=== PATIENT | female | born 1990 | race Caucasian/White ===

== ENCOUNTER 2018-12-15 23:06 | Emergency (ER) | payer OTHER, MEDICAID, SELFPAY ==
[2018-12-15 23:35] VITALS: BP 126/78; PULSE 78; RESP 18; TEMP 36.7; O2SAT 99; BMI 31.0
--- NOTE | 2018-12-16 02:17 | ED.FEMALEGU ---
HPI - Female Genitourinary General Chief complaint: Urogenital-Female Stated complaint: bowling floor manager problem, lower abdominal pain Time Seen by Provider: 12/16/18 02:06 Source: patient Mode of arrival: ambulatory Limitations: no limitations History of Present Illness HPI Narrative: Patient is a 28-year-old female who presents abnormal feeling in her vagina. For the last 3 weeks she feels like something is coming out especially when she squats down. Today she was bending down playing with her daughter when she felt like it was coming out even more. She denies any difficulty urinating she has had some abnormal bowel movements as some with blood in quite hard. She has no abdominal pain no fever. She also states that her period It is about 10 days late. Review of Systems Review of Systems GENERAL: Denies chills,fever HEENT: Denies throat pain RESPIRATORY: Denies dyspnea, cough, wheezing CARDIOVASCULAR: Denies chest pain, palpitations GASTROINTESTINAL: Denies nausea, vomiting MUSCULOSKELETAL: Denies extremity pain, injury SKIN: No rash, no laceration, no pruritus NEUROLOGIC: Denies weakness, dizziness, headache, numbness 8 point review of systems is negative except for those stated above and HPI Genitourinary Reports as per [facility] Medical History Patient denies significant medical history (Acute) Surgical History Hx of tubal ligation (Acute) Social History alcohol intake: never substance use type: does not use Social History alcohol intake: never substance use type: does not use Comment: Exam Initial Vital Signs Initial Vital Signs: Vital Signs Temperature 98.1 F 12/15/18 23:35 Pulse Rate 78 12/15/18 23:35 Respiratory Rate 18 12/15/18 23:35 Blood Pressure 126/78 12/15/18 23:35 Pulse Oximetry 99 12/15/18 23:35 GENERAL: Well-appearing, well-nourished and in no acute distress. CARDIOVASCULAR: peripheral pulses in tact, cap refill <2 sec RESPIRATORY: No respiratory distress, speaks in full sentences without difficulty ABDOMEN: Soft, nontender, no guarding or rebound PELVIC: External genitalia is normal, patient does have a vaginal bulge with bearing down, no vaginal bleeding, no vaginal discharge, no odor, cervical os is closed, no adnexal tenderness EXTREMITIES: Normal range of motion, no clubbing or edema. Neurovascularly intact NEUROLOGICAL: Cranial nerves II through XII grossly intact. Normal gait and speech. SKIN: Warm, dry, no petechiae, no rashes or lesions. Course Vital Signs - 8 hr 12/15/18 23:35 12/16/18 02:42 Temperature 98.1 F Pulse Rate 78 66 Respiratory Rate 18 16 Blood Pressure 126/78 Blood Pressure [Right Arm] 114/74 Pulse Oximetry 99 99 MDM - Female Genitourinary Lab Data Attestation: I reviewed the patient's lab results. Urine Dip Bedside Urine Glucose Negative Bedside Urine Bilirubin - Negative Bedside Urine Ketone - Negative Urine Specific [place] 1.030 Bedside Urine Occult Blood - Negative Bedside Urine pH 5.5 Bedside Urine Protein +/- 15 Bedside Urine Urobilinogen +/- 1mg Bedside Urine Nitrite - Negative Bedside Urine Leukocytes - Negative Esterase MDM Narrative Medical decision making narrative: Unfortunately nursing did not do POC . It is not having any abnormal bleeding she has no abdominal pain, and does have a history of tubal ligation, I think is unlikely at this time. Patient does have an obvious bulge coming from her vagina consistent with uterine prolapse. I recommended she follow up with bowling floor manager. Discharge Plan Departure Patient Disposition: Home Clinical Impression: Incomplete uterine prolapse Discharge Date/Time: 12/16/18 03:37 Interventions: ED Discharge Assessment Last Done: 12/16/18 03:36 Instructions: DI for Uterine Prolapse Activity Restrictions/Additional Instructions: *You have been diagnosed with uterine prolapse *What to do: This will likely require surgery please speak with her bowling floor manager not emergent at this time *Continue to take medications as directed *Follow up with your primary care provider in 2-3 days *Return to ER if you should have or any new, worsening or concerning symptoms Referrals: Elodia Sharif MD [Physician] -
[2018-12-16 02:42] VITALS: BP 114/74; PULSE 66; RESP 16; O2SAT 99
--- NOTE | 2018-12-16 06:25 | ED_ITS ---
HPI - Female Genitourinary General Chief complaint: Urogenital-Female Stated complaint: ager tender problem, lower abdominal pain Time Seen by Provider: 12/16/18 02:06 Source: patient Mode of arrival: ambulatory Limitations: no limitations History of Present Illness HPI Narrative: Patient is a 28-year-old female who presents abnormal feeling in her vagina. For the last 3 weeks she feels like something is coming out espec ially when she squats down. Today she was bending down playing with her daughter when she felt like it was coming out even more. She denies any difficulty urinating she has had some abnormal bowel movements as some with blood in quite hard. She has no abdominal pain no fever. She also states that her period It is about 10 days late. Review of Systems Review of Systems GENERAL: Denies chills,fever HEENT: Denies throat pain RESPIRATORY: Denies dyspnea, cough, wheezing CARDIOVASCULAR: Denies chest pain, palpitations GASTROINTESTINAL: Denies nausea, vomiting MUSCULOSKELETAL: Denies extremity pain, injury SKIN: No rash, no laceration, no pruritus NEUROLOGIC: Denies weakness, dizziness, headache, numbness 8 point review of systems is negative except for those stated above and HPI Genitourinary Reports as per [facility] Medical History Patient denies significant medical history (Acute) Surgical History Hx of tubal ligation (Acute) Social History alcohol intake: never substance use type: does not use Social History alcohol intake: never substance use type: does not use Comment: Exam Initial Vital Signs Initial Vital Signs: Vital Signs Temperature 98.1 F 12/15/18 23:35 Pulse Rate 78 12/15/18 23:35 Respiratory Rate 18 12/15/18 23:35 Blood Pressure 126/78 12/15/18 23:35 Pulse Oximetry 99 12/15/18 23:35 GENERAL: Well-appearing, well-nourished and in no acute distress. CARDIOVASCULAR: peripheral pulses in tact, cap refill <2 sec RESPIRATORY: No respiratory distress, speaks in full sentences without difficulty ABDOMEN: Soft, nontender, no guarding or rebound PELVIC: External genitalia is normal, patient does have a vaginal bulge with bearing down, no vaginal bleeding, no vaginal discharge, no odor, cervical os is closed, no adnexal tenderness EXTREMITIES: Normal range of motion, no clubbing or edema. Neurovascularly intact NEUROLOGICAL: Cranial nerves II through XII grossly intact. Normal gait and speech. SKIN: Warm, dry, no petechiae, no rashes or lesions. Course Vital Signs - 8 hr 12/15/18 23:35 12/16/18 02:42 Temperature 98.1 F Pulse Rate 78 66 Respiratory Rate 18 16 Blood Pressure 126/78 Blood Pressure [Right Arm] 114/74 Pulse Oximetry 99 99 MDM - Female Genitourinary Lab Data Attestation: I reviewed the patient's lab results. Urine Dip Bedside Urine Glucose Negative Bedside Urine Bilirubin - Negative Bedside Urine Ketone - Negative Urine Specific [place] 1.030 Bedside Urine Occult Blood - Negative Bedside Urine pH 5.5 Bedside Urine Protein +/- 15 Bedside Urine Urobilinogen +/- 1mg Bedside Urine Nitrite - Negative Bedside Urine Leukocytes - Negative Esterase MDM Narrative Medical decision making narrative: Unfortunately nursing did not do POC . It is not having any abnormal bleeding she has no abdominal pain, and does have a history of tubal ligation, I think is unlikely at this time. Patient does have an obvious bulge coming from her vagina consistent with uterine prolapse. I recommended she follow up with ager tender. Discharge Plan Departure Patient Disposition: Home Clinical Impression: Incomplete uterine prolapse Discharge Date/Time: 12/16/18 03:37 Interventions: ED Discharge Assessment Last Done: 12/16/18 03:36 Instructions: DI for Uterine Prolapse Activity Restrictions/Additional Instructions: *You have been diagnosed with uterine prolapse *What to do: This will likely require surgery please speak with her ager tender not emergent at this time *Continue to take medications as directed *Follow up with your primary care provider in 2-3 days *Return to ER if you should have or any new, worsening or concerning symptoms Referrals: Elodia Sharif MD [Physician] -
== END 2018-12-16 03:37 | disposition home or self-care (01) ==
PROVIDERS: Emergency Provider Emergency Medicine
DX: N81.2 Incomplete uterovaginal prolapse (principal)
CPT/HCPCS: 81003; 99282

== ENCOUNTER 2019-03-06 09:30 | Outpatient (RCR) | payer OTHER, MEDICAID, SELFPAY ==
--- NOTE | 2019-02-12 10:21 | PT.OIE ---
Current Diagnoses Stress incontinence (female) (male) (02/12/19) Cystocele, midline (02/12/19) Urgency of urination (02/12/19) Past Medical History (Last Reviewed 02/12/19 @ 10:19 by Sruthi Moore, PT) Patient denies significant medical history (Acute) Past Surgical History (Last Reviewed 02/12/19 @ 10:19 by Sruthi Moore, PT) Hx of tubal ligation (Acute) Provider Visit Care Team Role Provider Type H Everardo Matute MD Primary Care Provider Physician Specialty: Medical Address: [address] [place] [address], [phone] Email: Elodia Sharif MD Attending Provider Physician Specialty: TEACHER'S ASSISTANT Address: [address] [place] [address], [address] Email: [email or web address] Physical Therapy Initial Evaluation PT-OP-A Visit Information Start: 02/12/19 07:20 Freq: Status: Active Protocol: Document 02/12/19 08:15 AMB (Rec: 02/12/19 09:57 AMB [email or web address]) Out-Patient Physical Therapy Visit Information Visit Information Visit Type Initial Evaluation Visit Start Time 08:15 Visit Stop Time 09:00 Total Visit Minutes 45 Visit Number 1 Evaluation Information Evaluation Date 02/12/19 PT-OP-B Current Condition Start: 02/12/19 07:20 Freq: Status: Active Protocol: Document 02/12/19 08:15 AMB (Rec: 02/12/19 09:57 AMB [email or web address]) Current Condition History of Current Condition Onset Date 2 years ago Current Complaints prolapse, stress incontinence, urgency History of Current Condition Deysi has had 3 children, the most recent was delivered 2 years ago, all vaginal deliveries, had a tear with the first, but more symptomatic with her third when she states she pushed once during delivery. She does state that she had stress incontinence symptoms as early as middle school, noting leaking with jumping on the trampoline caused leaks. Since the of her first child, she has had more urgency, noting that she cannot wait to use the bathroom, and if she drinks a lot of water she gets pain in her abdomen if she tries to hold the urine. Recently she has noticed a vaginal bulge and was diagnosed with cystocele. She does note that intercourse has been more difficult, feels like there isn't a lot of room in there. History of chronic constipation. Has been working out a lot with both [employer] and weightlifting, has lost 80 pounds since the of her second child. Current Functional Impairments (Reported) Functional Limitations- Recreation/ Difficulty working out due to Hobbies needing to use the bathroom 3x during a 1.5 hour period due to drinking a lot of water and having to void 3x to avoid bladder pain. Avoids long car trips. PT-OP-C Subjective Start: 02/12/19 07:20 Freq: Status: Active Protocol: Document 02/12/19 08:15 AMB (Rec: 02/12/19 09:57 AMB [email or web address]) Patient Questionnaires Pelvic Pain and Urgency/Frequency Patient Symptom Scale Pelvic Pain Score 4 PT-OP-I Pelvic Floor Start: 02/12/19 07:20 Freq: Status: Active Protocol: Document 02/12/19 08:15 AMB (Rec: 02/12/19 10:06 AMB [email or web address]) Pelvic Floor Assessment Urine Pelvic Floor Surgery tubal ligation Urinary Symptoms Urge Sensation Prolapse Pain Leakage Size Small Leakage Cause Cough Exercise Sneeze Urge Leaks Per Day 3 Nocturia 1 Bowel Bowel Symptoms Constipation Pelvic Clock Pelvic Clock 12-3 Tenderness Pelvic Clock 9-12 Tenderness Prolapse Cystocele Grade 2 Perineal Descent Resting Absent Bearing Present Contraction Ability Voluntary Contraction Weak Voluntary Relaxation Weak Manual Muscle Testing Left 2 Manual Muscle Testing Right 2 Manual Muscle Testing Anterior 1 Manual Muscle Testing Posterior 3 Muscle Endurance (Seconds) 4 Number of Quick Contractions In 10 4 Seconds Comments Pelvic Floor Comments Deysi tends to use her abdominals and gluteals when using her pelvic floor. Better strength posteriorly then anteriorly. 1 finger width diastasis recti just inferior to umbilicus. PT-OP-Q Treatments Start: 02/12/19 07:20 Freq: Status: Active Protocol: Document 02/12/19 08:15 AMB (Rec: 02/12/19 10:06 AMB [email or web address]) Manual Therapy Treatment Soft Tissue Mobilization 1 Body Location abdomen Comments ILU self massage Neuro Re-Education Treatment Other Activities 1 Details quick flicks and long holds Comments hooklying PT-OP-T Assessment and Plan Start: 02/12/19 07:20 Freq: Status: Active Protocol: Document 02/12/19 08:15 AMB (Rec: 02/12/19 10:18 AMB [email or web address]) Physical Therapy Assessment Rehab Potential Rehabilitation Potential Good Evaluation Complexity Number of Personal Factors/Comorbidities 1-2 Number of Body Systems Impaired 3 Clinical Presentation at Evaluation Evolving Impairments Impairments Functional Activities Pain Strength Goals Two Impairment urgency Short Term Goal (STG) Deysi will be able to workout for 1.5 hours with voiding her bladder only one time without pain. STG Duration 5 weeks Stoper Goal (LTG) Deysi will be able to go home and not have urinary urgency. LTG Duration 10 weeks One Impairment prolapse Short Term Goal (STG) Deysi will improve her pelvic floor strength to 3/5. STG Duration 5 weeks Stoper Goal (LTG) Deysi will be able to contract her pelvic floor muscles while performing a squat. LTG Duration 10 weeks Assessment Summary Assessment Deysi attends physical therapy with multiple pelvic floor impairments. Her biggest concern is her prolapse, but she also has urgency and stress incontinence. She will benefit from PT to improve her pelvic floor strength in a safe way so that she can continue to workout without worsening her prolapse. We will also be addressing her leaking. Her chronic constipation also will worsen her prolapse in the long run, so we will work on education to reduce this as much as possible. Physical Therapy Plan Frequency and Duration Frequency of Treatment 1x/Week Duration of Treatment 10 weeks Plan of Care Start Date 02/12/19 Plan of Care End Date 04/23/19 Therapeutic Interventions Therapeutic Interventions Home Exercise Program Manual Therapy Neuromuscular Re-education Self-Care/Home Management Therapeutic Activities Therapeutic Exercises Modalities Biofeedback Electric Stimulation Next Visit Focus/Plan Next Note Type Treatment Note Next Visit Plan Begin with sEMG, urge reduction.
--- NOTE | 2019-02-12 10:22 | PT.OPPOC ---
Current Diagnoses Stress incontinence (female) (male) (02/12/19) Cystocele, midline (02/12/19) Urgency of urination (02/12/19) Provider Visit Care Team Role Provider Type H Everardo Matute MD Primary Care Provider Physician Specialty: Medical Address: [address] [place] [address], [place], [id number] Email: Elodia Sharif MD Attending Provider Physician Specialty: TOBACCO CLASSER Address: [address] [place] [address], [id number] Email: [email or web address] Plan Of Care PT-OP-T Assessment and Plan Start: 02/12/19 07:20 Freq: Status: Active Protocol: Document 02/12/19 08:15 AMB (Rec: 02/12/19 10:18 AMB [email or web address]) Physical Therapy Assessment Rehab Potential Rehabilitation Potential Good Evaluation Complexity Number of Personal Factors/Comorbidities 1-2 Number of Body Systems Impaired 3 Clinical Presentation at Evaluation Evolving Impairments Impairments Functional Activities Pain Strength Goals Two Impairment urgency Short Term Goal (STG) Deysi will be able to workout for 1.5 hours with voiding her bladder only one time without pain. STG Duration 5 weeks Group Home Goal (LTG) Deysi will be able to go home and not have urinary urgency. LTG Duration 10 weeks One Impairment prolapse Short Term Goal (STG) Deysi will improve her pelvic floor strength to 3/5. STG Duration 5 weeks Plate Straightener Goal (LTG) Deysi will be able to contract her pelvic floor muscles while performing a squat. LTG Duration 10 weeks Assessment Summary Assessment Deysi attends physical therapy with multiple pelvic floor impairments. Her biggest concern is her prolapse, but she also has urgency and stress incontinence. She will benefit from PT to improve her pelvic floor strength in a safe way so that she can continue to workout without worsening her prolapse. We will also be addressing her leaking. Her chronic constipation also will worsen her prolapse in the long run, so we will work on education to reduce this as much as possible. Physical Therapy Plan Frequency and Duration Frequency of Treatment 1x/Week Duration of Treatment 10 weeks Plan of Care Start Date 02/12/19 Plan of Care End Date 04/23/19 Therapeutic Interventions Therapeutic Interventions Home Exercise Program Manual Therapy Neuromuscular Re-education Self-Care/Home Management Therapeutic Activities Therapeutic Exercises Modalities Biofeedback Electric Stimulation Next Visit Focus/Plan Next Note Type Treatment Note Next Visit Plan Begin with sEMG, urge reduction. Plan of Care Dates Plan of Care Start Date 02/12/19 Plan of Care End Date 04/23/19 Please Sign and Return: I have reviewed this Plan of Care and certify that the skilled therapy services above are required to meet the patient?s needs. Physician Signature Date Printed Name and Credentials Clinical Instructor Signature Printed Name and Credentials
--- NOTE | 2019-02-28 08:47 | PT.OTN ---
Current Diagnoses Cystocele, midline (02/27/19) Physical Therapy Treatment Note PT-OP-A Visit Information Start: 02/12/19 07:20 Freq: Status: Active Protocol: Document 02/27/19 13:45 AMB (Rec: 02/28/19 08:46 AMB [email or web address]) Out-Patient Physical Therapy Visit Information Visit Information Visit Type Treatment Note Visit Start Time 13:45 Visit Stop Time 14:30 Total Visit Minutes 45 Visit Number 2 PT-OP-B Current Condition Start: 02/12/19 07:20 Freq: Status: Active Protocol: Document 02/12/19 08:15 AMB (Rec: 02/12/19 09:57 AMB [email or web address]) Current Condition History of Current Condition Onset Date 2 years ago Current Complaints prolapse, stress incontinence, urgency History of Current Condition Deysi has had 3 children, the most recent was delivered 2 years ago, all vaginal deliveries, had a tear with the first, but more symptomatic with her third when she states she pushed once during delivery. She does state that she had stress incontinence symptoms as early as middle school, noting leaking with jumping on the trampoline caused leaks. Since the of her first child, she has had more urgency, noting that she cannot wait to use the bathroom, and if she drinks a lot of water she gets pain in her abdomen if she tries to hold the urine. Recently she has noticed a vaginal bulge and was diagnosed with cystocele. She does note that intercourse has been more difficult, feels like there isn't a lot of room in there. History of chronic constipation. Has been working out a lot with both cardio and weightlifting, has lost 80 pounds since the of her second child. Current Functional Impairments (Reported) Functional Limitations- Recreation/ Difficulty working out due to Hobbies needing to use the bathroom 3x during a 1.5 hour period due to drinking a lot of water and having to void 3x to avoid bladder pain. Avoids long car trips. PT-OP-C Subjective Start: 02/12/19 07:20 Freq: Status: Active Protocol: Document 02/27/19 13:45 AMB (Rec: 02/28/19 08:46 AMB [email or web address]) OP-PT Subjective Patient Comments Patient Comments Deysi reports her cystocele is not as bad as when she saw Dr. Foist originally. She is concerned about being able to continue to lift weights. PT-OP-I Pelvic Floor Start: 02/12/19 07:20 Freq: Status: Active Protocol: Document 02/12/19 08:15 AMB (Rec: 02/12/19 10:06 AMB [email or web address]) Pelvic Floor Assessment Urine Pelvic Floor Surgery tubal ligation Urinary Symptoms Urge Sensation Prolapse Pain Leakage Size Small Leakage Cause Cough Exercise Sneeze Urge Leaks Per Day 3 Nocturia 1 Bowel Bowel Symptoms Constipation Pelvic Clock Pelvic Clock 12-3 Tenderness Pelvic Clock 9-12 Tenderness Prolapse Cystocele Grade 2 Perineal Descent Resting Absent Bearing Present Contraction Ability Voluntary Contraction Weak Voluntary Relaxation Weak Manual Muscle Testing Left 2 Manual Muscle Testing Right 2 Manual Muscle Testing Anterior 1 Manual Muscle Testing Posterior 3 Muscle Endurance (Seconds) 4 Number of Quick Contractions In 10 4 Seconds Comments Pelvic Floor Comments Deysi tends to use her abdominals and gluteals when using her pelvic floor. Better strength posteriorly then anteriorly. 1 finger width diastasis recti just inferior to umbilicus. PT-OP-Q Treatments Start: 02/12/19 07:20 Freq: Status: Active Protocol: Document 02/27/19 13:45 AMB (Rec: 02/28/19 08:46 AMB [email or web address]) Therapeutic Exercises Supine Exercises 3 Supine Exercise Name roll in/ roll out Resistance #3 band Reps/Minutes 1x10 ea Comments TrA 2 Supine Exercise Name hooklying march with PF contract Reps/Minutes 2x10 Comments TrA 1 Supine Exercise Name pelvic tilt with PF contract Reps/Minutes 2x10 Standing Exercises 2 Standing Exercise Name mini squat Reps/Minutes 2x10 1 Standing Exercise Name stand with TrA/ pelvic floor Reps/Minutes 10x5 PT-OP-T Assessment and Plan Start: 02/12/19 07:20 Freq: Status: Active Protocol: Document 02/27/19 13:45 AMB (Rec: 02/28/19 08:46 AMB [email or web address]) Physical Therapy Assessment Assessment Summary Assessment Deysi with good understanding of pelvic floor and TrA combined stabilization at the end of the visit. Will need to recheck how she is doing her HEP next visit to assess retention. Physical Therapy Plan Next Visit Focus/Plan Next Note Type Treatment Note Next Visit Plan Pt needs to void more frequently with her description of urge/ working all day without voiding. May consider bladder diary.
--- NOTE | 2019-03-06 16:52 | PT.OTN ---
Current Diagnoses Cystocele, midline (03/06/19) Physical Therapy Treatment Note PT-OP-A Visit Information Start: 02/12/19 07:20 Freq: Status: Active Protocol: Document 03/06/19 09:30 AMB (Rec: 03/06/19 10:13 AMB [id number]) Out-Patient Physical Therapy Visit Information Visit Information Visit Type Treatment Note Visit Start Time 09:30 Visit Stop Time 10:15 Total Visit Minutes 45 Visit Number 3 PT-OP-B Current Condition Start: 02/12/19 07:20 Freq: Status: Active Protocol: Document 02/12/19 08:15 AMB (Rec: 02/12/19 09:57 AMB [email or web address]) Current Condition History of Current Condition Onset Date 2 years ago Current Complaints prolapse, stress incontinence, urgency History of Current Condition Deysi has had 3 children, the most recent was delivered 2 years ago, all vaginal deliveries, had a tear with the first, but more symptomatic with her third when she states she pushed once during delivery. She does state that she had stress incontinence symptoms as early as middle school, noting leaking with jumping on the trampoline caused leaks. Since the of her first child, she has had more urgency, noting that she cannot wait to use the bathroom, and if she drinks a lot of water she gets pain in her abdomen if she tries to hold the urine. Recently she has noticed a vaginal bulge and was diagnosed with cystocele. She does note that intercourse has been more difficult, feels like there isn't a lot of room in there. History of chronic constipation. Has been working out a lot with both cardio and weightlifting, has lost 80 pounds since the of her second child. Current Functional Impairments (Reported) Functional Limitations- Recreation/ Difficulty working out due to Hobbies needing to use the bathroom 3x during a 1.5 hour period due to drinking a lot of water and having to void 3x to avoid bladder pain. Avoids long car trips. PT-OP-C Subjective Start: 02/12/19 07:20 Freq: Status: Active Protocol: Document 03/06/19 09:30 AMB (Rec: 03/06/19 10:13 AMB [id number]) OP-PT Subjective Patient Comments Patient Comments Deysi is doing well but has not been exercising as much. PT-OP-I Pelvic Floor Start: 02/12/19 07:20 Freq: Status: Active Protocol: Document 02/12/19 08:15 AMB (Rec: 02/12/19 10:06 AMB [email or web address]) Pelvic Floor Assessment Urine Pelvic Floor Surgery tubal ligation Urinary Symptoms Urge Sensation Prolapse Pain Leakage Size Small Leakage Cause Cough Exercise Sneeze Urge Leaks Per Day 3 Nocturia 1 Bowel Bowel Symptoms Constipation Pelvic Clock Pelvic Clock 12-3 Tenderness Pelvic Clock 9-12 Tenderness Prolapse Cystocele Grade 2 Perineal Descent Resting Absent Bearing Present Contraction Ability Voluntary Contraction Weak Voluntary Relaxation Weak Manual Muscle Testing Left 2 Manual Muscle Testing Right 2 Manual Muscle Testing Anterior 1 Manual Muscle Testing Posterior 3 Muscle Endurance (Seconds) 4 Number of Quick Contractions In 10 4 Seconds Comments Pelvic Floor Comments Deysi tends to use her abdominals and gluteals when using her pelvic floor. Better strength posteriorly then anteriorly. 1 finger width diastasis recti just inferior to umbilicus. PT-OP-Q Treatments Start: 02/12/19 07:20 Freq: Status: Active Protocol: Document 03/06/19 16:05 AMB (Rec: 03/06/19 16:45 AMB [email or web address]) Therapeutic Exercises Supine Exercises 4 Supine Exercise Name bridges Reps/Minutes 2x10 Comments with PF, TrA stab 2 Supine Exercise Name hooklying march with PF contract Reps/Minutes 2x10 Comments TrA 1 Supine Exercise Name pelvic tilt with PF contract Reps/Minutes 2x10 Standing Exercises 2 Standing Exercise Name mini squat Reps/Minutes 2x10 Comments vc mechanics 1 Standing Exercise Name stand with TrA/ pelvic floor Reps/Minutes 10x5 Other Exercises 1 Other Exercise Name quadruped cat cow Reps/Minutes 10 Comments with TrA/ PF PT-OP-T Assessment and Plan Start: 02/12/19 07:20 Freq: Status: Active Protocol: Document 03/06/19 09:30 AMB (Rec: 03/06/19 10:24 AMB [id number]) Physical Therapy Assessment Assessment Summary Assessment Deysi did well today with her pelvic floor stabilization, but we will need to continue to progress her into more functional postures. Physical Therapy Plan Next Visit Focus/Plan Next Note Type Treatment Note Next Visit Plan Progress TrA and pelvic floor strength.
--- NOTE | 2019-04-29 13:36 | PT.OPDS ---
Current Diagnoses Cystocele, midline (03/06/19) Provider Visit Care Team Role Provider Type H Everardo Matute MD Primary Care Provider Physician Specialty: Medical Address: [address] [place] [address], [place], [address] Email: Eldoia Sharif MD Attending Provider Physician Specialty: SOCIOLOGY TEACHER Address: [address] [place] [address], [place], [address] Email: [email or web address] Visit Number Visit Number 3 Discharge Summary PT-OP-B Current Condition Start: 02/12/19 07:20 Freq: Status: Active Protocol: Document 02/12/19 08:15 AMB (Rec: 02/12/19 09:57 AMB [email or web address]) Current Condition History of Current Condition Onset Date 2 years ago Current Complaints prolapse, stress incontinence, urgency History of Current Condition Deysi has had 3 children, the most recent was delivered 2 years ago, all vaginal deliveries, had a tear with the first, but more symptomatic with her third when she states she pushed once during delivery. She does state that she had stress incontinence symptoms as early as middle school, noting leaking with jumping on the trampoline caused leaks. Since the of her first child, she has had more urgency, noting that she cannot wait to use the bathroom, and if she drinks a lot of water she gets pain in her abdomen if she tries to hold the urine. Recently she has noticed a vaginal bulge and was diagnosed with cystocele. She does note that intercourse has been more difficult, feels like there isn't a lot of room in there. History of chronic constipation. Has been working out a lot with both cardio and weightlifting, has lost 80 pounds since the of her second child. Current Functional Impairments (Reported) Functional Limitations- Recreation/ Difficulty working out due to Hobbies needing to use the bathroom 3x during a 1.5 hour period due to drinking a lot of water and having to void 3x to avoid bladder pain. Avoids long car trips. PT-OP-C Subjective Start: 02/12/19 07:20 Freq: Status: Active Protocol: Document 03/06/19 09:30 AMB (Rec: 03/06/19 10:13 AMB [id number]) OP-PT Subjective Patient Comments Patient Comments Deysi is doing well but has not been exercising as much. PT-OP-I Pelvic Floor Start: 02/12/19 07:20 Freq: Status: Active Protocol: Document 02/12/19 08:15 AMB (Rec: 02/12/19 10:06 AMB [email or web address]) Pelvic Floor Assessment Urine Pelvic Floor Surgery tubal ligation Urinary Symptoms Urge Sensation Prolapse Pain Leakage Size Small Leakage Cause Cough Exercise Sneeze Urge Leaks Per Day 3 Nocturia 1 Bowel Bowel Symptoms Constipation Pelvic Clock Pelvic Clock 12-3 Tenderness Pelvic Clock 9-12 Tenderness Prolapse Cystocele Grade 2 Perineal Descent Resting Absent Bearing Present Contraction Ability Voluntary Contraction Weak Voluntary Relaxation Weak Manual Muscle Testing Left 2 Manual Muscle Testing Right 2 Manual Muscle Testing Anterior 1 Manual Muscle Testing Posterior 3 Muscle Endurance (Seconds) 4 Number of Quick Contractions In 10 4 Seconds Comments Pelvic Floor Comments Deysi tends to use her abdominals and gluteals when using her pelvic floor. Better strength posteriorly then anteriorly. 1 finger width diastasis recti just inferior to umbilicus. PT-OP-T Assessment and Plan Start: 02/12/19 07:20 Freq: Status: Active Protocol: Document 04/29/19 13:30 AMB (Rec: 04/29/19 13:36 AMB [email or web address]) Physical Therapy Assessment Assessment Summary Assessment Deysi canceled her last appointment and has not called back to schedule more. This clinic tried to call her twice to follow up, but her voicemail box is full. She attended 3 appointments where she was instructed in a a basic pelvic floor strengthening program and should be able to continue with that independently. Physical Therapy Plan Discharge Physical Therapy Discharge Reasons No Longer Attending PT
== END 2019-05-08 10:51 | disposition home or self-care (01) ==
LOC: PHYS 09:30
PROVIDERS: PCP Family Medicine; Visit Provider Specialist
DX: N81.11 Cystocele, midline (principal)
CPT/HCPCS: 97110; 97162

== ENCOUNTER → 2020-05-01 11:37 | Outpatient (CLI) | payer OTHER, MEDICAID, SELFPAY ==
--- NOTE | 2020-05-01 11:41 | DI.RAD.S_ITS ---
PROCEDURE: XR FINGER LT MIN 2V INDICATIONS: l finger pain TECHNIQUE: AP hand, 2 views of the middle finger(s) acquired. COMPARISON: None. FINDINGS: Bones: No displaced fractures or dislocations. No suspicious bony lesions. Soft tissues: No suspicious soft tissue calcifications. IMPRESSION: No displaced fractures of the left middle finger. Dictated by: Celestino Sherman M.D. on 05/01/2020 at 11:13 Approved by: Celestino Sherman M.D. on 05/01/2020 at 11:13
== END ==
PROVIDERS: PCP Family Medicine; Referring Provider Physician Assistant; Visit Provider Physician Assistant
DX: M79.645 Pain in left finger(s) (principal)
CPT/HCPCS: 73140

== ENCOUNTER → 2020-11-23 13:17 | Outpatient (CLI) | payer OTHER, MEDICAID, SELFPAY | PROVIDERS: PCP Family Medicine; Visit Provider Physician Assistant | DX: B00.9 Herpesviral infection, unspecified (principal) | CPT/HCPCS: 87255 ==

== ENCOUNTER → 2021-01-18 10:06 | Outpatient (CLI) | payer OTHER, MEDICAID, SELFPAY ==
[2021-01-18 10:57] LABS: COVID19 -Nasal RAPID Negative (Negative)
== END ==
PROVIDERS: PCP Family Medicine; Visit Provider Student in an Organized Health Care Education/Training Program
DX: H92.09 Otalgia, unspecified ear (principal); N39.0 Urinary tract infection, site not specified
CPT/HCPCS: 87077; 87086; 87147; 87635

== ENCOUNTER → 2021-10-04 12:58 | Outpatient (CLI) | payer OTHER, MEDICAID, SELFPAY ==
[2021-10-04 16:13] LABS: COVID19 -Nasal RAPID Negative (Negative)
== END ==
PROVIDERS: PCP Family Medicine; Visit Provider Physician Assistant
DX: Z20.822 Contact with and (suspected) exposure to COVID-19 (principal)
CPT/HCPCS: 87635

== ENCOUNTER → 2023-03-13 09:37 | Outpatient (CLI) | payer OTHER, MEDICAID, SELFPAY | PROVIDERS: PCP Family Medicine; Visit Provider Physician Assistant | DX: J02.9 Acute pharyngitis, unspecified (principal) | CPT/HCPCS: 87070; 87880 ==

== ENCOUNTER 2024-08-31 16:38 | Emergency (ER) | payer OTHER, SELFPAY ==
[2024-08-31 16:43] VITALS: BP 117/70; PULSE 96; RESP 18; TEMP 36.2; O2SAT 100; BMI 36.9
--- NOTE | 2024-08-31 16:59 | PC.NURSE ---
Patient went to restroom to attempt to collect UA, unable to urinate at this time. New vaginal bleeding. Ended period on . Had normal 5 day cycle. Usually very normal cycles.
[2024-08-31 17:05] LABS: Add Manual Diff / Slide Review NO; Basophils Absolute Auto 0 /uL (0-100); Basophils Percent Auto 0.2 % (0-2); Eosinophils Absolute Auto 100 /uL (0-450); Eosinophils Percent Auto 0.6 % (2-4); Hematocrit 43.9 % (36-46); Hemoglobin 14.8 g/dL (12.0-16.0); Lymphocytes Absolute Auto 1400 /uL (1100-4500); Mean Corpuscular HGB Conc 33.8 % (30-36); Mean Corpuscular Hemoglobin 28.2 PG (26-34); Mean Corpuscular Volume 83.5 fL (80-100); Monocytes Absolute Auto 700 /uL (0-900); Neutrophils Absolute Auto 10800 /uL (1500-7000); Neutrophils Percent Auto 83.2 % (50-75); Platelet Count 359 X10^3/uL (150-400); Red Blood Cell Count 5.26 X10^6/uL (4.0-5.2); Red Cell Distribution Width 13.4 % (11.6-14.8)
[2024-08-31 17:17] LABS: Alanine Aminotransferase 23 IU/L (<35); Albumin 4.8 g/dL (3.5-5.0); Albumin Globulin Ratio 1.3 (1.0-2.8); Alkaline Phosphatase 61 U/L (38-126); Aspartate Aminotransferase 29 IU/L (14-36); BUN Creatinine Ratio 20.8 (6-22); Bilirubin Total 0.6 mg/dL (0.2-1.3); Blood Urea Nitrogen 16 mg/dL (7-17); Calcium 9.9 mg/dL (8.4-10.2); Carbon Dioxide 23 mmol/L (22-32); Chloride 105 mmol/L (98-107); Estimated Glomerular Filt Rate > 60 mL/min (>60); Globulin 3.6 g/dL (1.7-4.1); Glucose 98 mg/dL (70-100); HEMOLYSIS < 15 (0-50); Lipase 174 U/L (23-300); Potassium 3.9 mmol/L (3.4-5.1); Sodium 138 mmol/L (137-145); Total Protein 8.4 g/dL (6.3-8.2)
--- NOTE | 2024-08-31 18:27 | DI.RAD.S_ITS ---
PROCEDURE: XR ABDOMEN 1V INDICATIONS: abd pain TECHNIQUE: One view of the abdomen acquired. COMPARISON: [facility], CR, XR CHEST 1V, 08/31/2024, 18:39. FINDINGS: Surgical changes and devices: None. Bowel: Bowel gas pattern is normal. Soft tissues: No suspicious abdominal calcifications. Visualized solid organ contours appear normal in size. Bones: No suspicious bony lesions. IMPRESSION: No acute plain film abnormality is seen. Dictated by: Alexandre Reyes M.D. on 08/31/2024 at 18:05 Approved by: Alexandre Reyes M.D. on 08/31/2024 at 18:05
--- NOTE | 2024-08-31 18:27 | DI.RAD.S_ITS ---
PROCEDURE: XR CHEST 1V INDICATIONS: Short of breath TECHNIQUE: One view of the chest was acquired. COMPARISON: [facility], CR, XR ABDOMEN 1V, 08/31/2024, 18:39. FINDINGS: Surgical changes and devices: None. Lungs and pleura: Lungs are clear. No pleural effusions or pneumothorax. Mediastinum: Mediastinal contours appear normal. Heart size is normal. Bones and chest wall: No suspicious bony lesions. Overlying soft tissues appear unremarkable. IMPRESSION: No acute cardiopulmonary abnormality is seen. Dictated by: Alexandre Reyes M.D. on 08/31/2024 at 18:06 Approved by: Alexandre Reyes M.D. on 08/31/2024 at 18:06
[2024-08-31 20:00] LABS: Appearance Urine UA SL CLOUDY; Bilirubin Urine UA 1+ (NEGATIVE); Color Urine UA YELLOW; Glucose Urine UA NEGATIVE (Negative); Ketones Urine UA 1+ (NEGATIVE); Leukocyte Esterase Urine UA NEGATIVE (NEGATIVE); Nitrite Urine UA NEGATIVE (Negative); Occult Blood Urine UA 3+ (Negative); Protein Urine UA 2+ (Negative); Specific Gravity Urine UA >=1.030 (1.000-1.035)
[2024-08-31 20:10] LABS: Bacteria Urine Moderate (10-30); Ictotest Urine Positive (Negative); RBC Urine 10-30/HPF (0-5/HPF); Squamous Epithelial Cell Urine 1-5 /HPF (0-5/HPF); Urine Volume 10mL (spun); WBC Urine 0-1/HPF (0-5/HPF)
[2024-08-31 20:11] LABS: Culture Indicated Urine Cult Not Indicated
[2024-08-31 20:13] VITALS: BP 113/70; PULSE 86; PULSE 89; RESP 14; TEMP 36.8; O2SAT 97; O2SAT 98
[2024-08-31 20:21] LABS: Pregnancy Test Urine Negative (Negative)
[2024-08-31 20:30] VITALS: BP 106/67; PULSE 84; O2SAT 99
[2024-08-31 21:00] VITALS: BP 91/53; PULSE 77; O2SAT 99
--- NOTE | 2024-08-31 21:21 | ED.GENADULT ---
HPI - General Adult General Chief complaint: Abdominal Pain Stated complaint: shortness of breath and abd pain Time Seen by Provider: 08/31/24 19:57 Source: patient Mode of arrival: Wheelchair History of Present Illness HPI narrative: 34-year-old female here for evaluation of abdominal pain and shortness of breath and nausea. States she woke up this morning having nausea. No vomiting. Went to work. Had a dose of Zofran which did help with the nausea however abdominal pain has continued. Has had an appendectomy. No urinary symptoms. No vaginal bleeding. No change in bowel habits. No fevers. No recent travel. No recent antibiotics. Started to have shortness of breath because of the abdominal pain that she was had she states she felt like she was getting very anxious about the discomfort. No chest pain. Related Data Home Medications Medication Instructions Recorded Confirmed dextroamphetamine-amphetamine 20 20 mg PO DAILY 01[birth year]1921 mg tablet (Adderall) Previous Rx's Medication Instructions Recorded medroxyprogesterone 10 mg tablet 10 mg PO DAILY Irregular menses 04/06/20 #30 tabs ondansetron 4 mg disintegrating 4 mg PO Q6H PRN nausea and 08/31/24 tablet vomiting #10 tabs Allergies Allergy/AdvReac Type Severity Reaction Status Date / Time Sulfa (Sulfonamide AdvReac Intermediate Hives Verified 08/31/24 16:43 Antibiotics) Review of Systems Review of Systems ROS Unobtainable: All systems reviewed & are unremarkable except as noted in HPI and below Patient History Medical History Patient denies significant medical history Surgical History Hx of tubal ligation Social History Smoking Status: Former smoker alcohol intake: never substance use type: does not use Smoking Status: Former smoker Substance Use Type: does not use Exam Initial Vital Signs Initial Vital Signs: Vital Signs Temperature 97.1 F L 08/31/24 16:43 Pulse Rate 96 H 08/31/24 16:43 Respiratory Rate 18 08/31/24 16:43 Blood Pressure 117/70 08/31/24 16:43 Pulse Oximetry 100 08/31/24 16:43 Oxygen Delivery Method Room Air 08/31/24 16:43 Const General: cooperative, well developed and No ill appearing HENMT Head: normal to inspection and normocephalic Resp Effort & Inspection: normal respiratory effort Auscultation: clear to auscultation bilaterally Cardio Rate: regular rate Rhythm: regular rhythm GI Inspection: normal to inspection and non-distended Palpation: soft and No tender Skin General: no rashes or lesions noted Neuro General: patient alert, patient awake and moves all extremities Extrem General: capillary refill normal Course Orders Ordered: ED Orders 08/31/24 19:49 Ictotest Urine Stat Test Urine Stat Urinalysis and Microscopic Stat Discontinued Medications Ondansetron HCl (Ondansetron 4 Mg/2 Ml Inj) 4 mg IV NOW PRN PRN Reason: Nausea And Vomiting Ondansetron HCl (Ondansetron 4 Mg Odt) 4 mg PO NOW PRN PRN Reason: Nausea And Vomiting Ondansetron HCl (Ondansetron 4 Mg Odt Prepack) 1 bottle MISC DIRECTED ONE Stop: 08/31/24 21:57 Last Admin: 08/31/24 22:03 Dose: 1 bottle Documented By: JIMMY Vital Signs Vital signs: Vital Signs - 8 hr 08/31/24 20:13 08/31/24 20:13 08/31/24 20:30 Temperature 98.3 F Pulse Rate 89 86 84 Respiratory Rate 14 Blood Pressure 113/70 Pulse Oximetry 98 97 99 Oxygen Delivery Method 08/31/24 20:30 08/31/24 21:00 08/31/24 21:00 Temperature Pulse Rate 77 Respiratory Rate Blood Pressure 106/67 91/53 L Pulse Oximetry 99 Oxygen Delivery Method Room Air 08/31/24 21:30 08/31/24 21:30 08/31/24 22:09 Temperature 97.8 F Pulse Rate 80 83 Respiratory Rate 17 Blood Pressure 102/67 110/65 Pulse Oximetry 99 100 Oxygen Delivery Method Room Air Medical Decision Making Lab Data Lab results reviewed: Yes I reviewed the patient's lab results. 08/31/24 17:00 08/31/24 17:00 Labs: Lab Results 08/31/24 08/31/24 Range/Units 17:00 19:49 WBC 13.0 H (4.5-11.0) X10^3/uL RBC 5.26 H (4.0-5.2) X10^6/uL Hgb 14.8 (12.0-16.0) g/dL Hct 43.9 (36-46) % MCV 83.5 (80-100) fL MCH 28.2 (26-34) PG MCHC 33.8 (30-36) % RDW 13.4 (11.6-14.8) % Plt Count 359 (150-400) X10^3/uL Neut % (Auto) 83.2 H (50-75) % Lymph % (Auto) 11.0 L (25-40) % [place] % (Auto) 5.0 (3-14) % Eos % (Auto) 0.6 L (2-4) % Baso % (Auto) 0.2 (0-2) % Neut # (Auto) 12593 H (8891-1609) /uL Lymph # (Auto) 1400 (4374-8872) /uL [place] # (Auto) 700 (0-900) /uL Eos # (Auto) 100 (0-450) /uL Baso # (Auto) 0 (0-100) /uL Sodium 138 (137-145) mmol/L Potassium 3.9 (3.4-5.1) mmol/L Chloride 105 (98-107) mmol/L Carbon Dioxide 23 (22-32) mmol/L BUN 16 (7-17) mg/dL Creatinine 0.77 (0.52-1.04) mg/dL Estimated GFR > 60 (>60) mL/min BUN/Creatinine Ratio 20.8 (6-22) Glucose 98 (70-100) mg/dL Calcium 9.9 (8.4-10.2) mg/dL Total Bilirubin 0.6 (0.2-1.3) mg/dL AST 29 (14-36) IU/L ALT 23 (<35) IU/L Alkaline Phosphatase 61 (38-126) U/L Total Protein 8.4 H (6.3-8.2) g/dL Albumin 4.8 (3.5-5.0) g/dL Globulin 3.6 (1.7-4.1) g/dL Albumin/Globulin Ratio 1.3 (1.0-2.8) Lipase 174 (23-300) U/L Urine Color Yellow Urine Appearance Sl cloudy Urine pH 5.0 (4.5-8.0) Ur Specific [place] >=1.030 H (1.000-1.035) Urine Protein 2+ H (Negative) Urine Glucose (UA) Negative (Negative) g/dL Urine Ketones 1+ H (NEGATIVE) Urine Occult Blood 3+ H (Negative) Urine Nitrate Negative (Negative) Urine Bilirubin 1+ H (NEGATIVE) Ur Bilirubin Confirm Positive H (Negative) Urine Urobilinogen 1.0 (0.2) E.U./dL Ur Leukocyte Esterase Negative (NEGATIVE) Urine RBC 10-30/hpf H (0-5/HPF) Urine WBC 0-1/hpf (0-5/HPF) Ur Squamous Epith Cells 1-5 /hpf (0-5/HPF) Urine Bacteria Moderate (10-30) H (None) Ur Culture Indicated? Cult not indicated Vol Urine Centrifuged 10ml (spun) Urine Test Negative (Negative) Imaging Data Abdominal x-ray: Radiologist's Impression: PROCEDURE: XR ABDOMEN 1V INDICATIONS: abd pain TECHNIQUE: One view of the abdomen acquired. COMPARISON: Located within [facility], XR CHEST 1V, 08/31/2024, 18:39. FINDINGS: Surgical changes and devices: None. Bowel: Bowel gas pattern is normal. Soft tissues: No suspicious abdominal calcifications. Visualized solid organ contours appear normal in size. Bones: No suspicious bony lesions. IMPRESSION: No acute plain film abnormality is seen. Chest x-ray: Radiologist's Impression: PROCEDURE: XR CHEST 1V INDICATIONS: Short of breath TECHNIQUE: One view of the chest was acquired. COMPARISON: Located within [facility], XR ABDOMEN 1V, 08/31/2024, 18:39. FINDINGS: Surgical changes and devices: None. Lungs and pleura: Lungs are clear. No pleural effusions or pneumothorax. Mediastinum: Mediastinal contours appear normal. Heart size is normal. Bones and chest wall: No suspicious bony lesions. Overlying soft tissues appear unremarkable. IMPRESSION: No acute cardiopulmonary abnormality is seen. [facility] Narrative Medical decision making narrative: Patient has a benign exam. Does have a leukocytosis of 13. Urinalysis does have some findings that would be consistent for urinary tract infection but she has no symptoms consistent with an infection. Urine culture was pending at the time of her discharge and we will wait for the results of this before starting any antibiotics. Patient was tolerating oral intake. I do feel that we can hold on further radiologic studies. Chest x-ray and x-ray of the abdomen showed no acute issues. Will discharge home with a prescription for Zofran. She was given return precautions and follow-up instructions. A test was negative. She expressed understanding and agreement with the plan. Discharge Plan Departure Patient Disposition: Home Clinical Impression: Abdominal pain, Vomiting Instructions: DI for Abdominal Pain-Adult, Nausea and Vomiting-Adult Activity Restrictions/Additional Instructions: I recommend a bland diet for the next couple days. Be sure that you were increasing your fluid intake. Use the nausea medication as needed. Return to the emergency department for new or worsening symptoms. Prescriptions: New ondansetron 4 mg tablet,disintegrating 4 mg PO Q6H PRN (Reason: nausea and vomiting) Qty: 10 0RF No Action medroxyprogesterone 10 mg tablet 10 mg PO DAILY Qty: 30 0RF Rx Instructions: Take 1 a day for 10 days, take again for 10 days starting on May 08, and June 08 dextroamphetamine-amphetamine [Adderall] 20 mg tablet 20 mg PO DAILY Referrals: Cora Matute MD [Primary Care Provider] - Stand Alone Forms: Patient Portal/API/Survey
[2024-08-31 21:30] VITALS: BP 102/67; PULSE 80; O2SAT 99
[2024-08-31] MEDS: ONDANSETRON 4 MG ODT PREPACK 1 BOTTLE MISC (22:03)
[2024-08-31 22:09] VITALS: BP 110/65; PULSE 83; RESP 17; TEMP 36.6; O2SAT 100
== END 2024-08-31 22:10 | disposition home or self-care (01) ==
PROVIDERS: Emergency Medicine; Emergency Provider Emergency Medicine; PCP Family Medicine
DX: R10.9 Unspecified abdominal pain (principal); R06.02 Shortness of breath; R11.2 Nausea with vomiting, unspecified
CPT/HCPCS: 36415; 71045; 74018; 80053; 81001; 81025; 83690; 85025; 99283; 99284